=== PATIENT | female | born 1955 | race Caucasian/White ===

== ENCOUNTER 2024-02-05 07:44 | Outpatient (NON) | payer MEDICARE, OTHER, SELFPAY | END 2024-02-05 07:45 | disposition home or self-care (01) | LOC: ANHLAB 02-06 07:45 | PROVIDERS: PCP Family Medicine; Visit Provider Internal Medicine Gastroenterology | DX: D12.4 Benign neoplasm of descending colon (principal); Z86.010 Personal history of colon polyps | CPT/HCPCS: 88305 ==

== ENCOUNTER 2024-02-05 09:07 | Day surgery (SDC) | payer MEDICARE, OTHER, SELFPAY ==
[2024-01-27 12:21] VITALS: BMI 29.0
[2024-01-29 11:20] VITALS: BMI 29.0
--- NOTE | 2024-02-04 11:31 | WPDANESEPPF ---
Anes - Initial Pre Proc Eval Procedure: Operation Date: 02/05/24 11:00 Proposed Procedures p Screening Colonoscopy - Hunter Farfan MD Date/Time: 02/04/24 11:31 Surgeon: Hunter Farfan MD Pre Op Diagnosis: History of Colon Polyps Patient Data Age: 68 Gender: F Height: 1.65 m Weight: 79 kg Allergies Allergy/AdvReac Type Severity Reaction Status Date / Time No Known Allergies Allergy Verified 02/05/24 09:46 Home Medications Medication Instructions Recorded Confirmed Type calcitriol 0.25 mcg capsule 0.25 mcg PO BID 01/29/24 01/29/24 History calcium carbonate 500 mg PO TID 01/29/24 01/29/24 History levothyroxine 125 mcg tablet 125 mcg PO DAILY 01/29/24 01/29/24 History mjbsbmgt-[id number] 8 mg-folic 400 1 tablet PO DAILY 01/29/24 01/29/24 History mcg-K 50 mcg-lutein 300 mcg tablet (Centrum Silver Women) Patient hx anesthesia problems: none Family hx anesthesia problems: none Results Review: All pre-operative results and documents have been reviewed as part of the pre-operative evaluation. REPLACED BY [facility] Past Medical History Medical History (Updated 02/04/24 @ 11:31 by Herbert Galicia DO) Hypothyroidism Surgical History Surgical History (Updated 02/04/24 @ 11:31 by Herbert Galicia DO) History of thyroidectomy Family History Family History (System 12/18/22 @ 16:22 by Andrey Frazier) Other Family history of malignant neoplasm Social History Social History (System 12/18/22 @ 16:22 by Andrey Frazier) Smoking status: Never smoker Alcohol intake: never Substance use type: does not use Living arrangements: with family Spiritual care concerns: No Anes - Eval Final PreProcedure Day of Procedure 02/04/24 11:31 Patient weight: overweight Heart: regular rate and rhythm Lungs: clear to auscultation Airway: Mallampati scale class II Neurological: alert and oriented Last oral intake: >/= 8 hours ASA classification: II Emergent: no Anesthetic plan: proceed Anesthesia type and monitoring: general GIVS and standard monitoring Results Review: All pre-operative results and documents have been reviewed as part of the pre-operative evaluation. Informed Consent: The patient's anesthetic plan and its attendant risks and benefits were discussed with the patient/family/POA. Questions were solicited and answers provided to the satisfaction of the patient/family/POA.
[2024-02-05 09:48] VITALS: BP 151/94; PULSE 75; RESP 18; TEMP 37.2; O2SAT 98; BMI 29.1
[2024-02-05] MEDS: LACTATED RINGERS 1,000 ML 150 ML IV CONT (10:08)
--- NOTE | 2024-02-05 10:46 | PM.HPGS ---
History of Present Illness History of Present Illness Consent: Risks, benefits, and alternatives have been discussed and questions answered. Patient agrees to proceed with procedure. Chief complaint: History of Colon Polyps Narrative: Janelle Ritchie is a 68 year old female presents for colonoscopy. Patient's current weight appetite and bowel movements are normal. Patient denies abdominal pain. Has had no bleeding. Family history noncontributory. Patient reports having had polyps elsewhere 10 years ago. Her family history is significant for a grandparent with colon cancer. Review of Systems Review of Systems: All systems reviewed & are unremarkable except as noted in HPI and below PMFSH Past Medical History Medical History (Updated 02/05/24 @ 10:47 by Hunter Farfan MD) Hypothyroidism Surgical History Surgical History (Updated 02/04/24 @ 11:31 by Herbert Galicia DO) History of thyroidectomy Family History Family History (System 12/18/22 @ 16:22 by Andrey Frazier) Other Family history of malignant neoplasm Social History Social History (System 12/18/22 @ 16:22 by Andrey Frazier) Smoking status: Never smoker Alcohol intake: never Substance use type: does not use Living arrangements: with family Spiritual care concerns: No Meds Home Medications and Allergies Home Medications Medication Instructions Recorded Confirmed Type calcitriol 0.25 mcg capsule 0.25 mcg PO BID 01/29/24 01/29/24 History calcium carbonate 500 mg PO TID 01/29/24 01/29/24 History levothyroxine 125 mcg tablet 125 mcg PO DAILY 01/29/24 01/29/24 History vsrxebif-emru-yuqj 8 mg-folic 400 1 tablet PO DAILY 01/29/24 01/29/24 History mcg-K 50 mcg-lutein 300 mcg tablet (Centrum Silver Women) Allergies Allergy/AdvReac Type Severity Reaction Status Date / Time No Known Allergies Allergy Verified 02/05/24 09:46 Vital Signs Vital Signs - 24 hr 02/05/24 09:48 Temperature 98.9 F Pulse Rate 75 Respiratory Rate 18 Blood Pressure 151/94 H Pulse Oximetry 98 Oxygen Delivery Room Air Exam Narrative: Physical exam reveals patient to be alert. Vital signs stable. HEENT exam is unremarkable. Patient is anicteric. Lungs are clear to auscultation and percussion. Heart is without murmur or extra sounds. Abdomen bowel sounds are present soft nontender with no hepatosplenomegaly. Digital external rectal exam normal. Assessment and Plan Assessment and plan (1) History of colon polyps: Code(s): Z86.010 - Personal history of colonic polyps Status: Acute Assessment and Plan: Patient has a history of colon polyps. Plan for surveillance colonoscopy now. Consider this at 5 year intervals in the future.
[2024-02-05 11:52] VITALS: BP 110/70; PULSE 71; RESP 14; O2SAT 96
--- NOTE | 2024-02-05 11:59 | WPDANESPN ---
Anes - Prog Note Post-Op Date/Time: 02/05/24 11:59 Cardiovascular status: normal Respiratory status: normal Airway patency: baseline Mental status: baseline Post-Op hydration status: normal Vital Signs: Last Vital Signs Temp 37.2 C 02/05/24 09:48 Pulse 75 02/05/24 09:48 Resp 18 02/05/24 09:48 BP 151/94 H 02/05/24 09:48 Pulse Ox 98 02/05/24 09:48 O2 Del Method Room Air 02/05/24 09:48 Pain Score (VAS): 0 I/O: Intake & Output 02/04/24 02/05/24 02/05/24 23:59 07:59 15:59 Intake Total 500 Balance 500 Post-procedural complaints: none Patient Feedback: Patient satisfied with anesthetic care. Other Findings: Patient vital signs back to baseline. Patient denies nausea and vomiting. Patient's pain under control. Patient OK for discharge.
[2024-02-05 12:02] VITALS: BP 119/76; PULSE 60; RESP 14; O2SAT 97
[2024-02-05 12:12] VITALS: BP 127/83; PULSE 58; RESP 16; O2SAT 98
== END 2024-02-05 12:35 | disposition home or self-care (01) ==
PROVIDERS: PCP Family Medicine; Visit Provider Internal Medicine Gastroenterology
PROC: 0DJD8ZZ Inspection of Lower Intestinal Tract, Via Natural or Artificial Opening Endoscopic (ICD-10-PCS; CPT 45378; principal; 2024-02-05 11:00)
DX: Z86.010 Personal history of colon polyps (principal); D12.4 Benign neoplasm of descending colon; K64.8 Other hemorrhoids
CPT/HCPCS: 45385